=== PATIENT | male | born 1965 | race Caucasian/White ===

== ENCOUNTER 2020-11-07 11:36 | Emergency (ER) | payer OTHER, SELFPAY ==
--- NOTE | ~2020-11-07 | XR_ITS ---
EXAMINATION: RIGHT KNEE. LEFT WRIST. CLINICAL INFORMATION: Fall. COMPARISON: None TECHNIQUE: Four views of the right knee. 4 views left wrist FINDINGS: Right knee: There is mild loss of medial compartment joint space with periarticular spurring. There is mild suprapatellar enthesophyte. No abnormal joint effusion seen. The soft tissues are normal. Left wrist: There is no visible acute fracture, dislocation or subluxation seen. Bones and joints unremarkable. The soft tissues are normal. XR/XR hand wrist LT IMPRESSION: Mild degenerative changes medial compartment right knee with anterior superior patellar enthesophyte. No acute fracture, loose bodies or lytic process seen. Unremarkable left wrist exam.
--- NOTE | ~2020-11-07 | CT_ITS ---
EXAMINATION: CT HEAD WITHOUT CONTRAST CLINICAL INFORMATION: Fall, trauma COMPARISON: None TECHNIQUE: Contiguous axial imaging was performed from the skull base to vertex without intravenous administration of contrast. Additional 2-D coronal and sagittal reformatted images are generated on the CT workstation and uploaded to PACS. This CT examination was performed using dose optimization techniques as appropriate, variously including the following: *Automated exposure control *Adjustment of mA and/or kV according to patient size (this includes techniques or standardized protocols for targeted exams where dose is matched to indication/reason for exam; i.e. extremities or head) *Use of iterative reconstruction technique DLP: 841 mGy-cm FINDINGS: There is no intracranial hemorrhage, hematoma, or extra-axial fluid collection. The ventricles are normal in size. There is no hydrocephalus, edema, or mass effect. The ortega-white matter differentiation appears symmetric. There is no visible acute territorial infarct or mass lesion. The calvarium appears intact. There is no pneumocephalus or orbital emphysema. There is mild mucosal thickening posterior left ethmoid air cells and mild circumferential thickening left maxillary sinus. No air-fluid levels. The middle ears and mastoids appear well-aerated and clear. CT/CT head/brain wo con IMPRESSION: No acute intracranial abnormality.
--- NOTE | ~2020-11-07 | XR_ITS ---
EXAMINATION: RIGHT KNEE. LEFT WRIST. CLINICAL INFORMATION: Fall. COMPARISON: None TECHNIQUE: Four views of the right knee. 4 views left wrist FINDINGS: Right knee: There is mild loss of medial compartment joint space with periarticular spurring. There is mild suprapatellar enthesophyte. No abnormal joint effusion seen. The soft tissues are normal. Left wrist: There is no visible acute fracture, dislocation or subluxation seen. Bones and joints unremarkable. The soft tissues are normal. XR/XR knee RT 4V IMPRESSION: Mild degenerative changes medial compartment right knee with anterior superior patellar enthesophyte. No acute fracture, loose bodies or lytic process seen. Unremarkable left wrist exam.
[2020-11-07 11:51] VITALS: BP 150/78; PULSE 100; RESP 18; TEMP 36.8; O2SAT 96; BMI 29.5
--- NOTE | 2020-11-07 12:47 | ED_ITS ---
HPI - Fall General Chief Complaint: Fall Stated Complaint: FALL AT WORK Time Seen by Provider: 11/07/20 12:24 Source: patient Mode of arrival: ambulatory History of Present Illness HPI Narrative: 55-year-old male with a past medical history previous back surgery presenting to the ED complaining of abrasion to left eyebrow, left hand, and right knee s/p mechanical trip and fall [employer] at work. Reports tripped over a hose fell on knee then face, denies LOC, does not take anticoagulation. Denies headache, lightheadedness/dizziness, visual change/loss, nausea/vomiting, numbness/tingling. Tetanus out of date. complaint: fall Onset (ago): hour(s) Related Data Allergies Allergy/AdvReac Type Severity Reaction Status Date / Time No Known Allergies Allergy Unverified 05/08/20 16:28 Review of Systems Review of Systems: Constitutional: No Fever, No Chills ENT/Mouth: No Ear Pain, No Nasal Congestion, No sore throat, No Rhinorrhea, No Swallowing Difficulty Cardiovascular: No Chest Pain, No SOB Gastrointestinal: No Nausea, No Vomiting, No Abdominal pain Musculoskeletal: +joint pain, No Myalgias, No Joint Swelling Skin: + abrasions Neuro: No Weakness, No Numbness, No Paresthesias, + head trauma, no LOC, no headache Yes all other systems are reviewed and are negative Neurologic: Denies Abnormal speech present [facility] Past Medical History Attestation statement: The following information was validated with the patient. Medical History (Updated 11/07/20 @ 11:53 by Siri Larkin) Back complaints Surgical History (Updated 11/07/20 @ 11:54 by Siri Larkin) H/O hernia repair Previous back surgery Social History Social History Smoking Status: Current every day smoker Smoked in Last 30 Days: Yes Use of substances other than those prescribed or required for medical reasons: No Advance Directives: No Advance Directives Information Provided: No Physical Exam Vital Signs: Vital Signs: Last Vital Signs Temp 98.3 F 11/07/20 11:51 Pulse 100 11/07/20 11:51 Resp 18 11/07/20 11:51 BP 150/78 H 11/07/20 11:51 Pulse Ox 96 11/07/20 11:51 Body Mass Index 29.5 Const: General: cooperative, healthy appearing, comfortable, alert and awake Orientation/consciousness: patient oriented x3 Limitations: no limitations HENMT: Other: + 1cm irregular laceration noted to left eyebrow per no appreciable periorbital step-offs. Ears: hearing grossly normal bilaterally and TM's normal bilaterally General nose exam: Normal external nose present Face and sinus: Yes normal facial exam Mouth: Normal oral and palatal mucosa present Eyes: Other: EOMs intact without entrapment or pain General: appearance normal, both eyes and all related structures Pupils: Equal, round and reactive pupils present EOM: EOMs intact bilaterally Neck: Neck: Yes normal visual inspection and Yes no meningeal signs Resp: Effort & Inspection: normal respiratory effort Cardio: Rate: regular rate Peripheral pulses: radial pulses present Neuro: General: patient oriented x3, gait normal, tone normal, moves all extremities, no meningeal signs, no focal motor deficits and CN's II-XI intact bilaterally Cranial nerves: Yes Equal, round and reactive pupils present Cognition (Neuro): normal cognition Speech: No Abnormal speech present Gait exam (Neuro): Normal gait present Motor exam (neuro): 5/5 motor strength present throughout Extrem: Other: Left hand ulnar aspect with notable abrasion, mild swelling and tenderness to palpation. FROM hand/digits and wrist intact. No snuffbox tenderness Right knee with abrasion, and small effusion with tenderness to palpation. FROM intact. Course Course Course Narrative: -1300--ED care transferred to [facility] pending imaging results Procedures Laceration Laceration 1: Site: face Size (cm): 1 Description: irregular Depth: simple, single layer Pre-repair: wound explored Skin layer closed with: other (Dermabond) MDM - Fall MDM Narrative Medical decision making narrative: On exam VSS, NAD/well-appearing, physical exam as above. Rule out fractures/intracranial pathology/bleed. Will update tetanus. Offered sutures to facial laceration which patient refused, will Dermabond Plan: Update tetanus, x-rays, head CT, Dermabond Medical Records Attestation: I reviewed the patient's medical records.
== END 2020-11-07 14:33 | disposition home or self-care (01) ==
PROVIDERS: Emergency Provider Emergency Medicine Emergency Medical Services
DX: S01.112A Laceration without foreign body of left eyelid and periocular area, initial encounter (principal); S60.512A Abrasion of left hand, initial encounter; S80.211A Abrasion, right knee, initial encounter; W18.31XA Fall on same level due to stepping on an object, initial encounter; M25.461 Effusion, right knee; F17.200 Nicotine dependence, unspecified, uncomplicated; Y93.89 Activity, other specified; Y92.69 Other specified industrial and construction area as the place of occurrence of the external cause; Y99.0 Civilian activity done for income or pay
CPT/HCPCS: 12011; 70450; 73110; 73130; 73564; 90471; 90715; 99283; 99284